=== PATIENT | female | born 1985 | race Caucasian/White ===

== ENCOUNTER 2018-02-01 16:34 | Emergency (ER) | payer BC ==
[~2018-02-01] VITALS: Ht 177.8 cm; Wt 75.0 kg
[2018-02-01 16:44] VITALS: BP 133/63; PULSE 107; RESP 16; TEMP 98.3; O2SAT 100
[2018-02-01] MEDS ORDERED: ACETAMINOPHEN 325 MG TAB PO ONE (18:15)
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
[2018-02-01] MEDS ORDERED: IBUPROFEN 600 MG TAB PO ONE (20:00)
== END 2018-02-01 20:29 | disposition home or self-care (01) ==
LOC: NEPC 16:34
DX: S09.90XA Unspecified injury of head, initial encounter (principal); Y04.2XXA Assault by strike against or bumped into by another person, initial encounter
CPT/HCPCS: 70450; 84703; 99283